=== PATIENT | male | born 1960 | race Caucasian/White ===

== ENCOUNTER 2023-10-24 20:20 | Emergency (ER) | payer OTHER, SELFPAY ==
[2023-10-24 20:21] VITALS: BP 159/101; PULSE 98; TEMP 36.7; O2SAT 95; BMI 25.5
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
[2023-10-24 20:36] LABS: Basophils Absolute Auto 0.1 10^3/uL (0.0-0.1); Basophils Percent Auto 0.7 % (0.2-2.0); Eosinophils Absolute Auto 0.1 10^3/uL (0.0-0.7); Eosinophils Percent Auto 0.6 % (0.9-7.0); Hematocrit 42.7 % (42.0-54.0); Hemoglobin 14.5 g/dL (14.0-18.0); Immature Granulocytes Abs Auto 0.03 10^3/uL (0.00-0.03); Immature Granulocytes Pct Auto 0.3 % (0.0-0.5); Lymphocytes Absolute Auto 1.4 10^3/uL (1.2-3.8); Lymphocytes Percent Auto 14.5 % (20.5-60.0); Mean Corpuscular Hemoglobin 31.5 pg (25.9-34.0); Mean Corpuscular Volume 92.8 fL (80.0-94.0); Mean Platelet Volume 9.2 fL (9.5-13.5); Monocytes Absolute Auto 0.7 10^3/uL (0.3-0.8); Monocytes Percent Auto 7.4 % (1.7-12.0); Neutrophils Absolute Auto 7.5 10^3/uL (1.4-6.5); Neutrophils Percent Auto 76.5 % (43.0-75.0); Platelet Count 299 10^3/uL (150-450); Red Cell Distribution Width 13.1 % (11.0-15.0); White Blood Count 9.8 10^3/uL (4.0-11.0)
[2023-10-24] MEDS: 0.9 % SODIUM CHLORIDE 1,000 ML 1000 ML IV (20:42)
[2023-10-24] MEDS: LORAZEPAM 2 MG/ML VIAL IV (20:42)
[2023-10-24 20:44] VITALS: PULSE 85; O2SAT 97
[2023-10-24 20:49] VITALS: BP 122/88
[2023-10-24 20:52] LABS: Alanine Aminotransferase 159 U/L (16-63); Albumin Globulin Ratio 1.3; Albumin Level 4.1 g/dL (3.4-5.0); Alkaline Phosphatase 88 U/L (46-116); Anion Gap 12.5; Aspartate Amino Transferase 124 U/L (15-37); BUN Creatinine Ratio 19.8; Bilirubin Total 0.7 mg/dL (0.2-1.0); Calcium 9.1 mg/dL (8.5-10.1); Carbon Dioxide 27.1 mmol/L (21.0-32.0); Chloride 100 mmol/L (98-107); Estimated GFR (African America >60 (>=60); Estimated GFR (Non-African Ame >60 (>=60); Globulin 3.1 g/dL; Glucose 181 mg/dL (74-106); Potassium 3.6 mmol/L (3.5-5.1); Salicylate <2.8 mg/dL (<=19.9); Sodium 136 mmol/L (136-145); Total Protein 7.2 g/dL (6.4-8.2)
[2023-10-24 20:53] LABS: Acetaminophen <2.0 ug/mL (10.0-30.0); Ethanol <3 mg/dL
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
--- NOTE | 2023-10-24 21:14 | PC.NURSE ---
Ressting in bed at this time with eyes closed, skin color pink, respirations even and non labored.
--- NOTE | 2023-10-24 21:14 | PC.NURSE ---
Call placed to [facility] and given information on patient, [facility] to call when counselor available to assess patient.
[2023-10-24 22:23] VITALS: BP 132/84; PULSE 86; O2SAT 98
--- NOTE | 2023-10-24 22:26 | PC.NURSE ---
Tammy from [facility] calls and gets update on patient, Tammy is coming to evaluate face to face.
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
--- NOTE | 2023-10-24 23:46 | PC.NURSE ---
Colleene from [facility] here at this time speaking with patient.
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
[2023-10-25] MEDS: WATER FOR INJECTION, STERILE 20 ML VIAL INJ (01:24)
[2023-10-25] MEDS: ZIPRASIDONE MESYLATE 20 MG VIAL IM (01:24)
--- NOTE | 2023-10-25 01:35 | PC.NURSE ---
hard restraints remain secure at this time. Pt resting with eyes close. Resp even and nonlabored. Security and RN present as 1:1 monitoring.
--- NOTE | 2023-10-25 01:53 | CT_ITS ---
[address] [address] Patient Name: RICHARDSON METZGER MRN: [id number] date: 1960 Sex: M Assigned Patient Location: ER Current Patient Location: Accession/Order Number: [id number] Exam Date: 10/25/2023 02:30 Report Date: 10/25/2023 02:58 At the request of: JC MARKER Procedure: CT head/brain wo con EXAM: CT head/brain wo con INDICATION: 63 years old; Male. TECHNIQUE: CT Head (ax/cor/sag reformats). Ionizing radiation dose reduced via iterative reconstruction/FBP blend and body size kV/mA adjustment. Comparison: None FINDINGS: POSTOPERATIVE CHANGES: None. BRAIN PARENCHYMA: No intraparenchymal or extra-axial hemorrhage. No mass effect. No midline shift or herniation. Normal akhtar/white differentiation. VENTRICLES/EXTRA-AXIAL SPACES: Normal for patient's age. SINUSES/MASTOIDS: Mucoperiosteal thickening in the frontal and ethmoid sinuses. Remaining sinuses are clear although the maxillary sinuses are not completely included. Mastoids and middle ears are clear. MSK: No displaced or depressed calvarial fracture. OTHER: No hyperdense intraluminal thrombus. CT/CT head/brain wo con IMPRESSION: 1. No acute intracranial abnormality. No hemorrhage or mass effect. 2. Sinus thickening. Electronically authenticated by: BRIGIDO SAINI Date: 10/25/2023 02:58
[2023-10-25 01:57] LABS: Bilirubin Urine NEGATIVE (NEGATIVE); Blood Urine NEGATIVE (NEGATIVE); Clarity Urine CLEAR (CLEAR); Color Urine YELLOW (YELLOW); Glucose Urine UA NEGATIVE (NEGATIVE); Ketones Urine 15 mg/dL (NEGATIVE); Leukocyte Esterase Urine NEGATIVE (NEGATIVE); Nitrite Urine NEGATIVE (NEGATIVE); Protein Urine NEGATIVE (NEG/TRACE); Specific Gravity Urine >=1.030 (1.005-1.025); Urobilinogen Urine 0.2 EU/dL (0.2-1.0)
[2023-10-25 02:00] VITALS: BP 109/80; PULSE 76; O2SAT 100
[2023-10-25 02:03] LABS: WBC Urine 0-2 #/HPF (NONE SEEN)
[2023-10-25 02:04] LABS: Bacteria Urine TRACE #/HPF (NONE SEEN); Cast Seen? SEEN #/LPF (NONE SEEN); Crystals Seen? None Seen #/HPF (None Seen); Hyaline Casts Urine RARE; Mucus Urine TRACE (NONE SEEN); RBC Urine 0-2 #/HPF (0-2); Squamous Epithelial Cell Urine RARE #/LPF (NONE/RARE); Urine Culture Indicated NO
--- NOTE | 2023-10-25 02:05 | PC.NURSE ---
VS done. Pt startles even with verbal stimuli. Pt given calm reassurance and VS done. Pt starts to sit up and then lays back down and closes eyes. Denies need for blanket or any other needs at this time. Hard restraints remain on and secure. No deficit note to circulation a this time,
[2023-10-25 02:08] LABS: Amphetamine Screen Urine NEGATIVE (NEGATIVE); Barbiturates Screen Urine NEGATIVE (NEGATIVE); Benzodiazepines Screen Urine POSITIVE (NEGATIVE); Buprenorphine Screen Urine NEGATIVE (NEGATIVE); Cannabinoid Screen Urine NEGATIVE (NEGATIVE); Cocaine Screen Urine NEGATIVE (NEGATIVE); Methadone Screen Urine NEGATIVE (NEGATIVE); Methamphetamines Screen Urine NEGATIVE (NEGATIVE); Opiate Screen Urine NEGATIVE (NEGATIVE); Oxycodone Screen Urine NEGATIVE (NEGATIVE); Phencyclidine Screen Urine NEGATIVE (NEGATIVE); Tricyclic Antidepressant Urine NEGATIVE (NEGATIVE)
[2023-10-25] MEDS: LORAZEPAM 2 MG/ML VIAL 1 MG IM (02:12)
--- NOTE | 2023-10-25 02:47 | PC.NURSE ---
U/a results faxed to [facility].
[2023-10-25 02:57] VITALS: PULSE 68; O2SAT 100
[2023-10-25 02:59] VITALS: BP 102/65; PULSE 65; O2SAT 100
[2023-10-25 03:33] VITALS: PULSE 64; O2SAT 100
[2023-10-25 04:00] VITALS: BP 98/53; PULSE 54; O2SAT 99
--- NOTE | 2023-10-25 05:01 | PC.NURSE ---
[facility] arrives for transport. Report called to JOHANN Bowers at [facility].
== END 2023-10-25 05:02 ==
PROVIDERS: Emergency Provider Emergency Medicine
DX: F23 Brief psychotic disorder (principal)
CPT/HCPCS: 36415; 70450; 80053; 80179; 80307; 80320; 80329; 81001; 85025; 96372; 96374; 99285; J2060; J3486